=== PATIENT | male | born 1950 | race Two or more races ===

== ENCOUNTER → 2018-12-17 | Day surgery (SDC) | payer OTHER | END | disposition home or self-care (01) | LOC: ADM 12-10 13:00 → AMB-ENDOS 05:10 | DX: D12.0 Benign neoplasm of cecum (principal); K64.1 Second degree hemorrhoids ==

== ENCOUNTER 2020-12-14 08:25 | Day surgery (SDC) | payer OTHER | END 2020-12-14 13:00 | disposition home or self-care (01) | LOC: AMB-ENDOS 08:25 | PROVIDERS: ATTEND Colon & Rectal Surgery | DX: D12.0 Benign neoplasm of cecum (principal); Z20.828 Contact with and (suspected) exposure to other viral communicable diseases; K64.1 Second degree hemorrhoids ==

== ENCOUNTER 2021-05-10 06:15 | Day surgery (SDC) | payer OTHER | END 2021-05-10 10:10 | disposition home or self-care (01) | LOC: AMB-ENDOS 06:15 | PROVIDERS: ATTEND Colon & Rectal Surgery | DX: D12.5 Benign neoplasm of sigmoid colon (principal); K64.1 Second degree hemorrhoids; Z20.822 Contact with and (suspected) exposure to COVID-19 ==